=== PATIENT | female | born 1995 | race Caucasian/White ===

== ENCOUNTER 2023-12-23 09:21 | Emergency (ER) | payer SELFPAY ==
[~2023-12-23] VITALS: Ht 154.9 cm; Wt 49.0 kg
[2023-12-23 09:57] VITALS: BP 92/59; PULSE 66; RESP 16; TEMP 97.3; O2SAT 96
[2023-12-23 10:45] LABS: APPEARANCE,URINE CLOUDY (CLEAR); BILIRUBIN,URINE 1+ (NEGATIVE); BLOOD, URINE 3+ (NEGATIVE); COLOR,URINE ORANGE (YELLOW); LEUKOCYTE ESTERASE ,URINE 3+ (NEGATIVE); NITRITE, URINE POSITIVE (NEGATIVE); PH,URINE 6.5 (5.0-9.0); PROTEIN,URINE 1+ (NEGATIVE); UGLUCOSE TRACE (NEGATIVE)
[2023-12-23 10:47] LABS: ICTOTEST POSITIVE (NEGATIVE)
[2023-12-23 11:09] LABS: BACTERIA,URINE >30 (MANY) /HPF (None Seen); RBC,URINE 11-20 (MOD) /HPF (0-5); WBC,URINE >25 (MANY) /HPF (0-5)
[2023-12-23 11:10] LABS: SQUAMOUS EPITHELIAL CELL,UR 0-3 (FEW) /LPF (0-3 (FEW))
[2023-12-23] MEDS ORDERED: NITR100C7 PO (11:25)
[2023-12-23] MEDS ORDERED: PHEN-1877 PO (11:25)
[2023-12-23 11:31] VITALS: BP 112/62; PULSE 66; RESP 16; TEMP 98; O2SAT 99
== END 2023-12-23 11:31 | disposition home or self-care (01) ==
LOC: MED 09:21
DX: N39.0 Urinary tract infection, site not specified (principal); Z79.899 Other long term (current) drug therapy
CPT/HCPCS: 81001; 81025; 87086; 87186; 99283